=== PATIENT | male | born 1995 | race Two or more races ===

== ENCOUNTER 2025-02-11 14:53 | Emergency (ER) | payer MEDICAID, SELFPAY ==
[2025-02-11 15:06] VITALS: BP 138/94; PULSE 112; RESP 18; TEMP 36.9; O2SAT 96
--- NOTE | 2025-02-11 15:14 | EDNOTE_ITS ---
<Statement entered by Alejandra Porter MD - 02/23/25 14:17> As co-signing physician, I was present and available for consult prn. I concur with the plan and care as documented by the midlevel provider. ED Eye Problem RME/HPI General Chief complaint: Eye Problems Stated complaint: R EYE REDNESS SINCE LAST NIGHT Time Seen by Provider: 02/11/25 15:06 Source: patient, RN notes reviewed and old records reviewed Arrival date/time: 02/11/25 14:53 Mode of arrival: ambulatory Limitations: no limitations RME / HPI RME / HPI Narrative: 30yom presents to ED for right eye redness, swelling, irritation and green drainage that initiated last night. No preceding eye injury or FB sensation reported. Denies exposure to pink eye. Denies fever, URI symptoms, blurry vision, photophobia, headache or dizziness. No symptoms. Patient tried OTC eye drops without relief. Related Data Previous Rx's ?Medication ?Instructions ?Recorded amoxicillin 875 mg-potassium 1 tab PO Q12H #20 tabs clavulanate 125 mg tablet (Augmentin) hydrocodone 5 mg-acetaminophen 325 1 tab PO Q8H PRN pa in #20 tabs 10/22/19 mg tablet ([place]) amoxicillin 875 mg-potassium 1 tab PO BID 10 days #20 tabs 02/11/25 clavulanate 125 mg tablet diclofenac sodium 0.1 % eye drops 1 drp ophthalmic (ey e) Q6H PRN eye 02/11/25 pain #2.5 mL moxifloxacin 0.5 % eye drops 1 drp ophthalmic (eye) TI D 7 days 02/11/25 (Vigamox) #3 mL Allergies Allergy/AdvReac Type Severity Reaction Status Date / Time No Known Allergies Allergy Verified 02/11/25 14:59 Review of Systems Review of Systems Systems Reviewed: All systems reviewed, normal except as documented Constitutional Constitutional: Denies chills, Denies fever(s) and Denies headache(s) Eyes Eyes: Denies blurry vision, Reports eye discharge, Reports irritation and Denies photophobia Comments: Reports redness ENT Ears, Nose, Mouth, and Throat: Denies dizziness and Denies headache(s) Genitourinary Genitourinary: Denies dysuria and Denies penile discharge Neurologic Neurologic: Denies dizziness and Denies headache(s) Past Medical History Surgical History OTHER SURGICAL HX: Denies surgical history Social History SMOKING STATUS: Never smoker SUBSTANCE USE: does not use ALCOHOL: Current (social) Past Medical History Comments PMH COMMENT: Denies past medical history ED Exam General Limitations: Present no limitations General appearance: Present alert and in no apparent distress Head Head exam: Present atraumatic and normocephalic Eye Eye exam: Present PERRL, EOMI, conjunctival injection (right) and periorbital tenderness (chemosis, right upper/lower eyelid swelling); Absent periorbital swelling ENT ENT exam: Present normal exam and mucous membranes moist Neck Neck exam: Present normal inspection and full ROM Chest Chest inspection: Present normal inspection and symmetric chest wall rise Respiratory Respiratory exam: Present normal lung sounds bilaterally; Absent respiratory distress Cardiovascular Cardiovascular exam: Present normal rhythm and tachycardia (mild HR 112) Extremities Exam Extremities exam: Present normal inspection and full ROM Neurological Exam Neurological exam: Present alert and oriented X3 Psychiatric Psychiatric exam: Present normal affect and normal mood Skin Skin exam: Present warm, dry, intact and normal color; Absent rash Course Quality Measures none Orders Category Date Time Status Julian Lamp to Bedside X1 Care 02/11/25 15:12 Completed Eye Culture and Gram Stain Stat Lab 02/11/25 15:44 Received Fluorescein Sodium [Bio-Teagan] Med 02/11/25 15:12 Discontinued 1 mg RIGHT EYE X1 ONE TETRACAINE Op Raysa 0.5% [Pontocaine Op Raysa 0.5%] Med 02/11/25 15:12 Discontinued 1 drop RIGHT EYE X1 ONE Vital Signs Vital signs: Vital Signs Temperature 98.5 F 02/11/25 15:06 Pulse Rate 112 H 02/11/25 15:06 Respiratory Rate 18 02/11/25 15:06 Blood Pressure 138/94 H 02/11/25 15:06 Pulse Oximetry (%) 96 02/11/25 15:06 Oxygen Delivery Method Room Air 02/11/25 15:06 PROCEDURES: Julian Lamp Exam Right eye: Flourescein uptake:: No Additional comments: No corneal abrasion or FB. Negative seidels Eye MDM Narrative MDM Narrative:: 30yom presents to ED for right eye redness, swelling, irritation and green drainage that initiated last night. No preceding eye injury or FB sensation reported. Denies exposure to pink eye. Denies fever, URI symptoms, blurry vision, photophobia, headache or dizziness. No symptoms. Patient tried OTC eye drops without relief. Will treat for conjunctivitis, mild preseptal cellulitis. No evidence of orbital cellulitis. Encouraged cool compresses, close follow-up with ophthalmology recommended. Stable for discharge, RTED precautions given. Patient data External records reviewed:: [facility] previous records (01/18/24 for left foot contusion) Clinical information provided by:: patient Social determinants that could affect healthcare access:: other (specify) (poor access to healthcare) Patient has the following chronic illnesses:: none How is presenting disease/condition affected by chronic disease/condition?: no chronic disease Evaluation data The following diagnostics were reviewed and interpreted by me:: other (specify) (none) Lab and/or radiology exams considered but not ordered:: CT orbits: no hx of eye trauma/injury Interpretation Summary: na Medications / Prescriptions Medications or Prescriptions considered but not ordered:: none Medication administrations:: Medication Administration History Discontinued Medications Fluorescein Sodium (Fluorescein Sod 1 Mg Strp) 1 mg RIGHT EYE X1 ONE Stop: 02/11/25 15:13 Last Admin: 02/11/25 15:31 Dose: 1 mg Documented By: SELAM Tetracaine HCl (Tetracaine Pf Op Raysa 0.5% 4 Ml Drpette) 1 drop RIGHT EYE X1 ONE Stop: 02/11/25 15:13 Last Admin: 02/11/25 15:32 Dose: 1 drop Documented By: SELAM above medications administered in ED Consultations Consultation(s) initiated? (list below): No Diagnosis Eye Problem Differential Diagnosis: corneal abrasion, conjunctivitis, acute iritis, periorbital cellulitis, subconjunctival hemorrhage and corneal ulcer Most likely diagnosis given after review of the tests above:: conjunctivitis, preseptal cellulitis Admission Indicated Admission indicated?: not indicated Admission Request Was there a request for admission?: No Disposition Plan Disposition Plan: Discharge Discharge Attestation Discharge Attestation: The patient and all family members were given an opportunity to ask questions and understood the discharge instructions. Discharge instructions specifically effects, indications for sooner follow up or return to the emergency department, and the expected course of current diagnosis. Patient condition: Stable Discharge Plan Plan Patient Disposition: HOME (Self Care) Patient condition on transfer: Stable Prescriptions/Referrals Prescriptions/Med Rec: New moxifloxacin [Vigamox] 0.5 % drops 1 drp ophthalmic (eye) TID 7 Days Qty: 3 0RF amoxicillin-pot clavulanate 875-125 mg tablet 1 tab PO BID 10 Days Qty: 20 0RF diclofenac sodium 0.1 % drops 1 drp ophthalmic (eye) Q6H PRN (Reason: eye pain) Qty: 2.5 0RF No Action amoxicillin-pot clavulanate [Augmentin] 875-125 mg tablet 1 tab PO Q12H Qty: 20 0RF hydrocodone-acetaminophen [[place]] 5-325 mg tablet 1 tab PO Q8H MDD 4 PRN (Reason: pain) Qty: 20 0RF Referrals: Haroldo Mullins MD [Primary Care Provider, Family Practice] - In 1 week Problem List Clinical Impression: Bacterial conjunctivitis of right eye, Preseptal cellulitis of right eye Patient/Caregiver Discharge Instructions Education Materials: ED Conjunctivitis, Bacterial Additional Instructions: Dr. Pantoja [address] [place] [address] Phone:? Print Language: Vietnamese Stand Alone Forms: Roberta Award Info., Patient Portal Info Letter PA/OPTICAL DISPENSER Supervising Physician PA/OPTICAL DISPENSER Supervising Physician: German
[2025-02-11] MEDS: FLUORESCEIN SOD 1 MG STRP RIGHT EYE (15:31)
[2025-02-11] MEDS: TETRACAINE PF OP SOL 0.5% 4 ML DRPETTE 1 DROP RIGHT EYE (15:32)
== END 2025-02-11 15:56 | disposition home or self-care (01) ==
PROVIDERS: Emergency Provider Emergency Medicine; PCP Family Medicine
DX: H10.89 Other conjunctivitis (principal); L03.213 Periorbital cellulitis
CPT/HCPCS: 87070; 87205; 99284